=== PATIENT | female | born 1970 | race American Indian/Alaskan Native ===

== ENCOUNTER 2016-08-03 13:42 | Emergency (ER) | payer MEDICAID ==
--- NOTE | 2016-08-03 14:06 | Emergency Department Report ---
ED Chest Pain HPI - General Chief Complaint: Chest Pain Stated Complaint: CHEST PAIN Time Seen by Provider: 08/03/16 14:02 Source: patient, EMS Mode of arrival: Stretcher Limitations: No Limitations - History of Present Illness Initial Comments: The patient describes a left-sided chest pain of 1 week's duration. She states first that it was in the axillary area and then in a spot which appear to be in her left breast. She states that it is not associated with shortness of breath or fever chills. She also denies leg pain or swelling. She is concerned she it might be related to "black mold". She states that she was admitted in care of this stone one year ago for chest pain. At that time she had a stress test that was negative and she was discharged in that state. She denies any pleuritic pain. She denies any exertional pain. She has no history of coronary artery disease in first-degree relatives. MD Complaint: chest pain -: week(s) Onset: during rest Pain Location: other Pain Radiation: none Severity: mild, moderate Quality: aching Consistency: intermittent Improves With: nothing Worsens With: nothing re: denies: nausea, vomting, diaphoresis, dyspnea, sense of impending doom Other Symptoms: denies: cough, fever, syncope, rash, acid taste in mouth, leg swelling Aspirin use within the Past 7 Days: (0) No - Related Data On Oral Contraceptives: No Home Medications Medication Instructions Recorded Confirmed Last Taken Ibuprofen [Motrin] 600 mg PO Q8H PRN 04/22/13 04/22/13 04/22/13 12:00 Losartan [Cozaar] 25 mg PO QDAY 04/22/13 04/22/13 04/22/13 08:00 Previous Rx's Medication Instructions Recorded Last Taken Type Fluconazole [Diflucan] 150 mg PO QDAY #1 tablet 04/23/13 Unknown Rx Hydrocodone Bit/Acetaminophen 1 each PO Q4-6H #14 tablet 04/23/13 Unknown Rx [Lortab 5-500 Tablet] Lisinopril [Zestril TAB] 10 mg PO QDAY #30 tablet 04/23/13 Unknown Rx Sulfamethoxazole/Trimethoprim 1 each PO BID #14 tablet 04/23/13 Unknown Rx [Bactrim DS] traMADol [Ultram] 50 mg PO Q6HR PRN #14 tablet 08/03/16 Unknown Rx Allergies Allergy/AdvReac Type Severity Reaction Status Date / Time No Known Allergies Allergy Unverified 04/22/13 23:06 HAKEEM score - Hakeem Score Age > 65: (0) No Aspirin use within the Past 7 Days: (0) No 3 or more CAD Risk Factors: (0) No 2 or more Angina events in past 24 hrs: (0) No Known CAD with more than 50% Stenosis: (0) No Elevated Cardiac Markers: (0) No ST Deviation Greater than 0.5mm: (0) No HAKEEM Score: 0 ED Review of Systems ROS: Stated complaint: CHEST PAIN Other details as noted in HPI Constitutional: denies: chills, fever Eyes: denies: eye pain, eye discharge, vision change ENT: denies: ear pain, throat pain Respiratory: denies: cough, shortness of breath, wheezing Cardiovascular: chest pain. denies: palpitations Endocrine: no symptoms reported Gastrointestinal: denies: abdominal pain, nausea, diarrhea Genitourinary: denies: urgency, dysuria, discharge Musculoskeletal: denies: back pain, joint swelling, arthralgia Skin: denies: rash, lesions Neurological: denies: headache, weakness, paresthesias Psychiatric: denies: anxiety, depression Hematological/Lymphatic: denies: easy bleeding, easy bruising ED Past Medical Hx - Past Medical History Previous Medical History?: Yes Hx Hypertension: Yes - Surgical History Past Surgical History?: Yes Additional Surgical History: csection - Social History Smoking Status: Never Smoker Substance Use Type: Marijuana - Medications Home Medications: Home Medications Medication Instructions Recorded Confirmed Last Taken Type Ibuprofen [Motrin] 600 mg PO Q8H PRN 04/22/13 04/22/13 04/22/13 12:00 History Losartan [Cozaar] 25 mg PO QDAY 04/22/13 04/22/13 04/22/13 08:00 History Fluconazole [Diflucan] 150 mg PO QDAY #1 tablet 04/23/13 Unknown Rx Hydrocodone Bit/Acetaminophen 1 each PO Q4-6H #14 tablet 04/23/13 Unknown Rx [Lortab 5-500 Tablet] Lisinopril [Zestril TAB] 10 mg PO QDAY #30 tablet 04/23/13 Unknown Rx Sulfamethoxazole/Trimethoprim 1 each PO BID #14 tablet 04/23/13 Unknown Rx [Bactrim DS] traMADol [Ultram] 50 mg PO Q6HR PRN #14 tablet 08/03/16 Unknown Rx ED Physical Exam - General Limitations: No Limitations General appearance: alert, in no apparent distress - Head Head exam: Present: atraumatic, normocephalic - Eye Eye exam: Present: normal appearance - ENT ENT exam: Present: mucous membranes moist - Neck Neck exam: Present: normal inspection - Respiratory Respiratory exam: Present: normal lung sounds bilaterally. Absent: respiratory distress - Cardiovascular Cardiovascular Exam: Present: regular rate, normal rhythm. Absent: systolic murmur, diastolic murmur, rubs, gallop - GI/Abdominal GI/Abdominal exam: Present: soft, normal bowel sounds. Absent: distended, tenderness, guarding, rebound, rigid - Extremities Exam Extremities exam: Present: normal inspection - Back Exam Back exam: Present: normal inspection - Neurological Exam Neurological exam: Present: alert, oriented X3, CN II-XII intact. Absent: motor sensory deficit - Psychiatric Psychiatric exam: Present: normal affect, normal mood - Skin Skin exam: Present: warm, dry, intact, normal color. Absent: rash ED Course Vital Signs 08/03/16 08/03/16 13:44 14:47 Temperature 98.3 F Pulse Rate 63 Respiratory 14 14 Rate Blood Pressure 132/82 O2 Sat by Pulse 100 Oximetry ED Medical Decision Making - Lab Data Result diagrams: 08/03/16 14:02 08/03/16 14:02 Laboratory Results - last 24 hr 08/03/16 08/03/16 14:02 14:02 WBC 6.2 RBC 5.06 H Hgb 12.7 Hct 38.6 MCV 76 L MCH 25 L MCHC 33 RDW 16.5 H Plt Count 247 Lymph % (Auto) 40.0 H [place] % (Auto) 6.7 Eos % (Auto) 1.7 Baso % (Auto) 0.6 Lymph # 2.5 [place] # 0.4 Eos # 0.1 Baso # 0.0 Seg Neutrophils % 51.0 Seg Neutrophils # 3.2 Sodium 138 Potassium 4.1 Chloride 101.6 Carbon Dioxide 25 Anion Gap 16 BUN 11 Creatinine 0.7 Estimated GFR > 60 BUN/Creatinine Ratio 15.71 Glucose 90 Calcium 8.6 Troponin T < 0.010 - EKG Data -: EKG Interpreted by Me EKG shows normal: sinus rhythm, axis, intervals, QRS complexes, ST-T waves - EKG Data Interpretation: nonspecific ST-T wave frederic (mild) - Radiology Data interpreted by me: chest x-ray NA states they showed no acute processF Critical care attestation.: If time is entered above; I have spent that time in minutes in the direct care of this critically ill patient, excluding procedure time. ED Disposition Clinical Impression: Atypical chest pain Disposition: DISCHARGED TO HOME OR SELFCARE Is pt being admited?: No Does the pt Need Aspirin: No Condition: Stable Instructions: Chest Pain (ED) Additional Instructions: Return any acute change or problem. Follow-up with her primary care provider. Rx as needed for pain. Prescriptions: traMADol [Ultram] 50 mg PO Q6HR PRN #14 tablet PRN Reason: Pain Referrals: PRIMARY CARE, [Primary Care Provider] - 3-5 Days [facility] [Provider Group] - 3-5 Days Time of Disposition: 17:02
[2016-08-03 14:14] LABS: Basophils % (Auto) 0.6 % (0.0-1.8); Eosinophils % (Auto) 1.7 % (0.0-4.3); Hematocrit 38.6 % (30.3-42.9); Hemoglobin 12.7 gm/dl (10.1-14.3); Mean Corpuscular HGB Conc 33 % (30-34); Mean Corpuscular Volume 76 fl (79-97); Platelet Count 247 K/mm3 (140-440); Red Blood Count 5.06 M/mm3 (3.65-5.03); Red Cell Distribution Width 16.5 % (13.2-15.2); White Blood Count 6.2 K/mm3 (4.5-11.0)
[2016-08-03 14:20] LABS: Mean Corpuscular Hemoglobin 25 pg (28-32)
[2016-08-03] MEDS ORDERED: TORADOL IV ONE (14:28)
[2016-08-03 14:34] LABS: Anion Gap 16 mmol/L; BUN/Creatinine Ratio 15.71; Blood Urea Nitrogen 11 mg/dL (7-17); Calcium 8.6 mg/dL (8.4-10.2); Carbon Dioxide 25 mmol/L (22-30); Chloride 101.6 mmol/L (98-107); Glucose 90 mg/dL (65-100); Potassium 4.1 mmol/L (3.6-5.0); Sodium 138 mmol/L (137-145)
[2016-08-03 17:09] VITALS: BP 126/83
--- NOTE | 2016-08-04 08:29 | XRay Report ---
CHEST ONE VIEW INDICATION: Chest pain. COMPARISON: 04/23/2013. FINDINGS: Portable, single, frontal chest radiograph demonstrates normal cardiomediastinal silhouette. Clear lungs. Unremarkable bones. Extrinsic EKG leads and presumed extrinsic artifact overlying T1. CONCLUSION: No acute disease in the chest. Thank you for the opportunity to participate in this patient's care.
== END 2016-08-03 17:20 | disposition home or self-care (01) ==
LOC: ED 13:42
DX: R07.89 Other chest pain (principal); I10 Essential (primary) hypertension; F12.10 Cannabis abuse, uncomplicated
CPT/HCPCS: 36415; 71010; 80048; 84484; 85025; 93005; 93010; 96374; 99285; J1885

== ENCOUNTER 2019-07-01 19:02 | Emergency (ER) | payer MEDICAID, OTHER ==
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
--- NOTE | 2019-07-01 23:10 | XRay Report ---
EXAMINATION: Lumbar spine radiograph series, 3 views, 07/01/2019 CLINICAL INFORMATION: Low back pain. No history of trauma is given. COMPARISON: None. FINDINGS: There is normal alignment of the lumbar vertebral bodies. Vertebral body height and interve rtebral disc spaces are well maintained. There is very minimal multilevel bony degenerative change no luke, as evidence by small anterior osteophytes. IMPRESSION: Minimal bony degenerative change of the lumbar spine. Signer Name: Stefany Chambers MD Signed: 07/01/2019 11:06 PM Workstation Name: [id number]
[2019-07-01] MEDS ORDERED: HYDROcodone/ACETAMINOPHEN 5-325 MG TAB PO STA (23:58)
[2019-07-02] MEDS ORDERED: KETOROLAC 60 MG/2 ML INJ IM ONE (00:59)
--- NOTE | 2019-07-02 01:06 | XRay Report ---
EXAMINATION: Cervical spine radiograph series, 3 views, 07/02/2019 CLINICAL INFORMATION: Neck pain. No history of trauma. COMPARISON: None. FINDINGS: There is gross normal alignment of the cervical vertebral bodies. Vertebral body height and intervertebral disc spaces are well maintained. There is very minimal degenerative change of the mid cervical spine, as evidence by small anterior osteophytes. IMPRESSION: Minimal bony degenerative change of the cervical spine. Signer Name: Stefany Chambers MD Signed: 07/02/2019 1:02 AM Workstation Name: [employer]
[2019-07-02 02:12] VITALS: BP 178/111
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
== END 2019-07-02 02:47 | disposition home or self-care (01) ==
LOC: ED 19:02
DX: M54.5 Low back pain (principal); I10 Essential (primary) hypertension; Z98.890 Other specified postprocedural states; Z79.899 Other long term (current) drug therapy; V89.2XXA Person injured in unspecified motor-vehicle accident, traffic, initial encounter; Y93.89 Activity, other specified; Y92.410 Unspecified street and highway as the place of occurrence of the external cause; Y99.8 Other external cause status
CPT/HCPCS: 72040; 72100; 96372; 99283; J1885

== ENCOUNTER 2019-10-17 17:23 | Emergency (ER) | payer SELFPAY ==
[2019-10-17 17:30] VITALS: BP 145/95
--- NOTE | 2019-10-17 17:36 | Emergency Department Report ---
Chief Complaint: Sore Throat Stated Complaint: SORE THROAT Time Seen by Provider: 10/17/19 17:27 - HPI History of Present Illness: 49 y/o female comes in for sore throat times 1 week and body aches . Has been seen and was told she does not have strep. No fever in triage. Concern for Covid-19 - Exam Physical Exam: AxO times 3 NAD throat clear /normal Ambulatory without difficulties. MSE screening note: Focused history and physical exam performed. Due to findings the following was ordered: 49 y/o female comes in for sore throat times 1 week and body aches . Has been seen and was told she does not have strep. No fever in triage. Concern for Covid-19 Recommend Zyrtec or Claritin increase fluids ED Disposition for MSE Disposition: MED SCREENING EXAM-LEFT Is pt being admited?: No Does the pt Need Aspirin: No Condition: Stable Additional Instructions: Recommend Zyrtec or Claritin increase fluids Referrals: MAUDE NELSON MD [Staff Physician] - 3-5 Days Forms: Work/School Release Form(ED)
== END 2019-10-17 18:00 | disposition left against medical advice (07) ==
LOC: ED 17:23
DX: J02.9 Acute pharyngitis, unspecified (principal); R52 Pain, unspecified
CPT/HCPCS: 99281

== ENCOUNTER 2020-08-15 23:45 | Emergency (ER) | payer SELFPAY ==
[2020-08-15 23:57] VITALS: BP 192/112
--- NOTE | 2020-08-16 00:07 | Emergency Department Report ---
ED General Adult HPI - General Chief complaint: Pain General Stated complaint: BODYACHES/ARM/SHOULDER PAIN/CHEST DISCOMFORT PUI?: No Source: patient Mode of arrival: Ambulatory Limitations: No Limitations - History of Present Illness Initial comments: 50-year-old -Swazi female with a past medical history of high blood pressure that did not take her medication presents to the emergency room stating that she went for TB test yesterday and believe that she was injected with something. Now patient reports pain all over joints and fatigue. Patient states that the nurse injected her right arm at the antecubital area with a clear substance. She was supposed to get a TB test. Onset/Timin -: days(s) Location: upper extremity Radiation: non-radiation Severity scale (0 -10): 5 Consistency: constant Improves with: none Worsens with: none Associated Symptoms: denies: confusion, diaphoresis, fever/chills, loss of appetite, nausea/vomiting, shortness of breath, weakness Treatments Prior to Arrival: none - Related Data Home Medications Medication Instructions Recorded Confirmed Last Taken Ibuprofen [Motrin] 600 mg PO Q8H PRN 04/22/13 04/22/13 04/22/13 12:00 Losartan [Cozaar] 25 mg PO QDAY 04/22/13 04/22/13 04/22/13 08:00 Previous Rx's Medication Instructions Recorded Last Taken Type Fluconazole [Diflucan] 150 mg PO QDAY #1 tablet 04/23/13 Unknown Rx Hydrocodone Bit/Acetaminophen 1 each PO Q4-6H #14 tablet 04/23/13 Unknown Rx [Lortab 5-500 Tablet] Sulfamethoxazole/Trimethoprim 1 each PO BID #14 tablet 04/23/13 Unknown Rx [Bactrim DS] lisinopriL [Zestril TAB] 10 mg PO QDAY #30 tablet 04/23/13 Unknown Rx traMADoL [Ultram] 50 mg PO Q6HR PRN #14 tablet 08/03/16 Unknown Rx Amoxicillin [Amoxicillin TAB] 875 mg PO BID #20 tablet 06/24/18 Unknown Rx Benzonatate [Tessalon Perle] 100 mg PO Q6H PRN #20 capsule 06/24/18 Unknown Rx Ibuprofen [Motrin] 600 mg PO Q8H PRN #20 tablet 06/24/18 Unknown Rx Nystas/Diphen/Xyl Visc/Mylanta 15 ml MM Q6H PRN 5 Days ml 06/24/18 Unknown Rx [Magic Mouthwash] Ketorolac [Toradol] 10 mg PO Q6H PRN #15 tablet 07/02/19 Unknown Rx methOCARBAMOL [Robaxin TAB] 750 mg PO Q8H PRN #14 tablet 07/02/19 Unknown Rx Albuterol Mdi (or & Nicu Only) 2 puff IH QID PRN #8.5 gram 01/22/20 Unknown Rx [ProAir HFA Inhaler] Benzonatate [Tessalon Perles] 100 mg PO Q8HR PRN #12 capsule 01/22/20 Unknown Rx Ondansetron [Zofran Odt] 4 mg PO Q8HR PRN #12 tab.rapdis 01/22/20 Unknown Rx Allergies Allergy/AdvReac Type Severity Reaction Status Date / Time No Known Allergies Allergy Verified 01/22/20 11:41 ED Review of Systems ROS: Stated complaint: BODYACHES/ARM/SHOULDER PAIN/CHEST DISCOMFORT Other details as noted in HPI Comment: All other systems reviewed and negative ED Past Medical Hx - Past Medical History Hx Hypertension: Yes Additional medical history: Chronic Low Back Pain - Surgical History Additional Surgical History: csection - Social History Smoking Status: Never Smoker - Medications Home Medications: Home Medications Medication Instructions Recorded Confirmed Last Taken Type Ibuprofen [Motrin] 600 mg PO Q8H PRN 04/22/13 04/22/13 04/22/13 12:00 History Losartan [Cozaar] 25 mg PO QDAY 04/22/13 04/22/13 04/22/13 08:00 History Fluconazole [Diflucan] 150 mg PO QDAY #1 tablet 04/23/13 Unknown Rx Hydrocodone Bit/Acetaminophen 1 each PO Q4-6H #14 tablet 04/23/13 Unknown Rx [Lortab 5-500 Tablet] Sulfamethoxazole/Trimethoprim 1 each PO BID #14 tablet 04/23/13 Unknown Rx [Bactrim DS] lisinopriL [Zestril TAB] 10 mg PO QDAY #30 tablet 04/23/13 Unknown Rx traMADoL [Ultram] 50 mg PO Q6HR PRN #14 tablet 08/03/16 Unknown Rx Amoxicillin [Amoxicillin TAB] 875 mg PO BID #20 tablet 06/24/18 Unknown Rx Benzonatate [Tessalon Perle] 100 mg PO Q6H PRN #20 capsule 06/24/18 Unknown Rx Ibuprofen [Motrin] 600 mg PO Q8H PRN #20 tablet 06/24/18 Unknown Rx Nystas/Diphen/Xyl Visc/Mylanta 15 ml MM Q6H PRN 5 Days ml 06/24/18 Unknown Rx [Magic Mouthwash] Ketorolac [Toradol] 10 mg PO Q6H PRN #15 tablet 07/02/19 Unknown Rx methOCARBAMOL [Robaxin TAB] 750 mg PO Q8H PRN #14 tablet 07/02/19 Unknown Rx Albuterol Mdi (or & Nicu Only) 2 puff IH QID PRN #8.5 gram 01/22/20 Unknown Rx [ProAir HFA Inhaler] Benzonatate [Tessalon Perles] 100 mg PO Q8HR PRN #12 capsule 01/22/20 Unknown Rx Ondansetron [Zofran Odt] 4 mg PO Q8HR PRN #12 tab.rapdis 01/22/20 Unknown Rx ED Physical Exam - General Limitations: No Limitations General appearance: alert, in no apparent distress, anxious - Head Head exam: Present: atraumatic, normocephalic - Eye Eye exam: Present: normal appearance - ENT ENT exam: Present: mucous membranes moist - Neck Neck exam: Present: normal inspection, full ROM - Respiratory Respiratory exam: Absent: accessory muscle use - Extremities Exam Extremities exam: Present: full ROM - Back Exam Back exam: Present: normal inspection, full ROM - Neurological Exam Neurological exam: Present: alert, oriented X3, normal gait - Psychiatric Psychiatric exam: Present: normal affect, normal mood - Skin Skin exam: Present: warm, dry, intact, normal color. Absent: rash ED Course Vital Signs 08/15/20 23:54 Temperature 99.6 F Pulse Rate 85 Respiratory 18 Rate Blood Pressure 192/112 O2 Sat by Pulse 95 Oximetry ED Medical Decision Making - Lab Data Result diagrams: 08/16/20 00:15 08/16/20 00:15 - Medical Decision Making 50-year-old -Swazi female with a past medical history of high blood pressure that did not take her medication presents to the emergency room stating that she went for TB test yesterday and believe that she was injected with something. Now patient reports pain all over joints and fatigue. Patient states that the nurse injected her right arm at the antecubital area with a clear substance. She was supposed to get a TB test. Blood sugar 95. All labs are within normal limits. Discussed with patient she can take Tylenol or ibuprofen. Critical care attestation.: If time is entered above; I have spent that time in minutes in the direct care of this critically ill patient, excluding procedure time. ED Disposition Clinical Impression: Generalized pain Disposition: DC-01 TO HOME OR SELFCARE Is pt being admited?: No Does the pt Need Aspirin: No Condition: Stable Instructions: Musculoskeletal Pain Additional Instructions: All labs are stable there is no signs of infection. I recommend Tylenol ibuprofen for pain. Follow-up with your primary care provider. Referrals: LANDEN MURRY MD [Primary Care Provider] - 3-5 Days [facility] [Provider Group] - 3-5 Days MAUDE NELSON MD [Staff Physician] - 3-5 Days Forms: Work/School Release Form(ED)
[2020-08-16 00:39] LABS: Basophils % (Auto) 0.6 % (0.0-1.8); Eosinophils # (Auto) 0.1 K/mm3 (0.0-0.4); Eosinophils % (Auto) 1.5 % (0.0-4.3); Hematocrit 40.2 % (30.3-42.9); Hemoglobin 13.6 gm/dl (10.1-14.3); Lymphocytes # (Auto) 3.4 K/mm3 (1.2-5.4); Lymphocytes % (Auto) 38.8 % (13.4-35.0); Mean Corpuscular HGB Conc 34 % (30-34); Mean Corpuscular Volume 77 fl (79-97); Monocytes # (Auto) 0.6 K/mm3 (0.0-0.8); Monocytes % (Auto) 6.6 % (0.0-7.3); Platelet Count 278 K/mm3 (140-440); Red Blood Count 5.26 M/mm3 (3.65-5.03)
[2020-08-16 00:55] LABS: Alanine Aminotransferase 21 units/L (7-56); Albumin 4.4 g/dL (3.9-5); BUN/Creatinine Ratio 16; Blood Urea Nitrogen 13 mg/dL (7-17); Calcium 9.6 mg/dL (8.4-10.2); Hemolysis Index 6
[2020-08-16 01:45] LABS: Bacteria,Urine 4+ /HPF (Negative); Bilirubin,Urine NEG (Negative); Blood,Urine NEG (Negative); Color,Urine Yellow (Yellow); Mucus,Urine FEW /HPF; Protein,Urine <15 mg/dL mg/dL (Negative); Urobilinogen,Urine < 2.0 mg/dL (<2.0)
[2020-08-16] MEDS ORDERED: IBUPROFEN 600 MG TAB PO ONE (02:23)
== END 2020-08-16 02:26 | disposition home or self-care (01) ==
LOC: ED 23:45
DX: M25.519 Pain in unspecified shoulder (principal); M79.603 Pain in arm, unspecified; I10 Essential (primary) hypertension; Z79.899 Other long term (current) drug therapy; Z98.890 Other specified postprocedural states
CPT/HCPCS: 36415; 80053; 81001; 82962; 85025

== ENCOUNTER 2021-01-09 15:59 | Emergency (ER) | payer MEDICAID ==
[2021-01-09 16:56] VITALS: BP 156/101
--- NOTE | 2021-01-09 18:32 | Emergency Department Report ---
Chief Complaint: Skin/Abscess/Foreign Body Stated Complaint: BODY PAIN Time Seen by Provider: 01/09/21 18:28 - HPI History of Present Illness: Patient is a 50-year-old female presents emergency room with complaints of wanting to have her tattoo checked on her right hand. she states that she had a tattoo on December 27. She states it has been crusting and irritating. She denies any numbness, weakness, fever, nausea, vomiting, diarrhea, chills. Past medical history of hypertension. No allergies medications. She states that she wants a blood test to check for hepatitis, HIV, staph. On exam: There is a tattoo to the right dorsal hand that appears to be in the healing process, there is some scabbing present, there is no erythema, no edema, no increased warmth, no fluctuance, no drainage, full range of motion, neurovascularly intact Patient is presenting for concerns of an infection to her tattoo There is a small abrasion/scab present, there is no erythema, no increased warmth, no induration, no fluctuance, no edema, there is no signs of cellulitis or abscess. Advised patient that we do not do HIV or hepatitis testing in the emergency room, given information for PCP and health department Advised patient that she has no clinical signs of infection at this time Discussed with patient Please use triple antibiotic or Neosporin ointment [id number] and place it 3 times a day. Follow-up with a primary care doctor in the health department. Return to emergency room for new or worse symptoms. Medical screening examination performed and there is no threat to life or limb at this time Discuss strict return precautions - Exam Vital Signs: Vital Signs 01/09/21 16:52 Temperature 98.6 F Pulse Rate 77 Respiratory 18 Rate Blood Pressure 156/101 O2 Sat by Pulse 99 Oximetry MSE screening note: Focused history and physical exam performed. Due to findings the following was ordered: ED Disposition for MSE Clinical Impression: Encounter for medical screening examination Disposition: DC-01 TO HOME OR SELFCARE Is pt being admited?: No Does the pt Need Aspirin: No Condition: Stable Additional Instructions: Please use triple antibiotic or Neosporin ointment [id number] and place it 3 times a day. Follow-up with a primary care doctor in the health department. Return to emergency room for new or worse symptoms. Referrals: [facility] [Provider Group] - 3-5 Days [facility] [Outside] - 3-[address] [facility] [Outside] - 3-5 Days [facility] [Outside] - 3-5 Days Time of Disposition: 18:31 Print Language: ICELANDIC
== END 2021-01-09 18:40 | disposition home or self-care (01) ==
LOC: ED 15:59
DX: M79.10 Myalgia, unspecified site (principal); Z00.00 Encounter for general adult medical examination without abnormal findings
CPT/HCPCS: 99281

== ENCOUNTER 2021-02-25 17:32 | Emergency (ER) | payer MEDICAID ==
[2021-02-25 22:59] VITALS: BP 198/126
--- NOTE | 2021-02-26 00:03 | XRay Report ---
LEFT FOOT 3 VIEWS INDICATION / CLINICAL INFORMATION: possible foreign body COMPARISON: None available. FINDINGS: BONES / JOINT(S): No acute fracture or subluxation. Small bunion first metatarsal head. Mild degenera tive change greatest first metatarsophalangeal joint and midfoot. Mild/moderate calcaneal spurring. SOFT TISSUES: No radiopaque foreign body identified. ADDITIONAL FINDINGS: None. Signer Name: Santiago Syed MD Signed: 02/25/2021 11:59 PM Workstation Name: [id number]
--- NOTE | 2021-02-26 00:44 | Emergency Department Report ---
ED Extremity Problem HPI - General Chief complaint: Skin/Abscess/Foreign Body Stated complaint: LEG PAIN Source: patient Mode of arrival: Ambulatory Limitations: No Limitations - History of Present Illness Initial comments: Patient is a 50-year-old -[place] female with a history of hypertension who presents to the ED with complaint of acute onset persistent severe painful mildly swollen left plantar foot due to a small puncture wound after she stepped onto a sharp object when wearing plastic shoes about 4 days ago. Patient states that the sharp object which she cannot remember what it may have been pierced through the rubber shoes and onto her left plantar foot causing puncture wound. Patient states that the pain has been persistent and worse especially in the last 2 days such that she is unable to bear weight on the left foot because of pain. Patient states that she is up-to-date with her tetanus vaccinations. Patient denies numbness and tingling or weakness of left foot, dizziness, syncope, fall, fever, chest pain or shortness of breath, chills, nausea and vomiting or back pain. MD Complaint: extremity pain (Left plantar foot pain puncture wound), other (Puncture wound on left plantar foot with pain) -: Sudden, days(s) (4) Location: left, lower extremity (Left plantar foot puncture wound with pain) History of Same: No -: Yes arthralgia, No fever, No associated dyspnea, No associated chest pain Radiation: distal Severity scale (0 -10): 8 Quality: aching, sharp Consistency: constant Improves with: nothing Worsens with: weight bearing, walking, exertion, palpation Associated Symptoms: denies other symptoms. denies: chest pain, shortness of breath, fever, myalgias, arthralgias, rash, other - Related Data Home Medications Medication Instructions Recorded Confirmed Last Taken Ibuprofen [Motrin] 600 mg PO Q8H PRN 04/22/13 04/22/13 04/22/13 12:00 Losartan [Cozaar] 25 mg PO QDAY 04/22/13 04/22/13 04/22/13 08:00 Previous Rx's Medication Instructions Recorded Last Taken Type Fluconazole [Diflucan] 150 mg PO QDAY #1 tablet 04/23/13 Unknown Rx Hydrocodone Bit/Acetaminophen 1 each PO Q4-6H #14 tablet 04/23/13 Unknown Rx [Lortab 5-500 Tablet] Sulfamethoxazole/Trimethoprim 1 each PO BID #14 tablet 04/23/13 Unknown Rx [Bactrim DS] lisinopriL [Zestril TAB] 10 mg PO QDAY #30 tablet 04/23/13 Unknown Rx traMADoL [Ultram] 50 mg PO Q6HR PRN #14 tablet 08/03/16 Unknown Rx Amoxicillin [Amoxicillin TAB] 875 mg PO BID #20 tablet 06/24/18 Unknown Rx Benzonatate [Tessalon Perle] 100 mg PO Q6H PRN #20 capsule 06/24/18 Unknown Rx Ibuprofen [Motrin] 600 mg PO Q8H PRN #20 tablet 06/24/18 Unknown Rx Nystas/Diphen/Xyl Visc/Mylanta 15 ml MM Q6H PRN 5 Days ml 06/24/18 Unknown Rx [Magic Mouthwash] Ketorolac [Toradol] 10 mg PO Q6H PRN #15 tablet 07/02/19 Unknown Rx methOCARBAMOL [Robaxin TAB] 750 mg PO Q8H PRN #14 tablet 07/02/19 Unknown Rx Albuterol Mdi (or & Nicu Only) 2 puff IH QID PRN #8.5 gram 01/22/20 Unknown Rx [ProAir HFA Inhaler] Benzonatate [Tessalon Perles] 100 mg PO Q8HR PRN #12 capsule 01/22/20 Unknown Rx Ondansetron [Zofran Odt] 4 mg PO Q8HR PRN #12 tab.rapdis 01/22/20 Unknown Rx Ciprofloxacin HCl 500 mg PO Q12H #20 tablet 02/26/21 Unknown Rx Ibuprofen [Motrin] 800 mg PO Q8HR PRN #30 tablet 02/26/21 Unknown Rx traMADoL [Ultram] 50 mg PO Q6HR PRN #12 tablet 02/26/21 Unknown Rx Allergies Allergy/AdvReac Type Severity Reaction Status Date / Time No Known Allergies Allergy Verified 01/22/20 11:41 ED Review of Systems ROS: Stated complaint: LEG PAIN Other details as noted in HPI Constitutional: denies: chills, fever Eyes: denies: eye pain, eye discharge, vision change ENT: denies: ear pain, throat pain Respiratory: denies: cough, shortness of breath, wheezing Cardiovascular: denies: chest pain, palpitations Endocrine: no symptoms reported Gastrointestinal: denies: abdominal pain, nausea, diarrhea Genitourinary: denies: urgency, dysuria, discharge Musculoskeletal: arthralgia (Left plantar foot pain due to a small puncture wound with mild swelling). denies: back pain, joint swelling Skin: other (Small puncture wound on left plantar foot with severe pain). denies: rash, lesions Neurological: denies: headache, weakness, paresthesias Psychiatric: denies: anxiety, depression Hematological/Lymphatic: denies: easy bleeding, easy bruising ED Past Medical Hx - Past Medical History Previous Medical History?: Yes Hx Hypertension: Yes Additional medical history: Chronic Low Back Pain - Surgical History Past Surgical History?: Yes Additional Surgical History: csection - Social History Smoking Status: Never Smoker - Medications Home Medications: Home Medications Medication Instructions Recorded Confirmed Last Taken Type Ibuprofen [Motrin] 600 mg PO Q8H PRN 04/22/13 04/22/13 04/22/13 12:00 History Losartan [Cozaar] 25 mg PO QDAY 04/22/13 04/22/13 04/22/13 08:00 History Fluconazole [Diflucan] 150 mg PO QDAY #1 tablet 04/23/13 Unknown Rx Hydrocodone Bit/Acetaminophen 1 each PO Q4-6H #14 tablet 04/23/13 Unknown Rx [Lortab 5-500 Tablet] Sulfamethoxazole/Trimethoprim 1 each PO BID #14 tablet 04/23/13 Unknown Rx [Bactrim DS] lisinopriL [Zestril TAB] 10 mg PO QDAY #30 tablet 04/23/13 Unknown Rx traMADoL [Ultram] 50 mg PO Q6HR PRN #14 tablet 08/03/16 Unknown Rx Amoxicillin [Amoxicillin TAB] 875 mg PO BID #20 tablet 06/24/18 Unknown Rx Benzonatate [Tessalon Perle] 100 mg PO Q6H PRN #20 capsule 06/24/18 Unknown Rx Ibuprofen [Motrin] 600 mg PO Q8H PRN #20 tablet 06/24/18 Unknown Rx Nystas/Diphen/Xyl Visc/Mylanta 15 ml MM Q6H PRN 5 Days ml 06/24/18 Unknown Rx [Magic Mouthwash] Ketorolac [Toradol] 10 mg PO Q6H PRN #15 tablet 07/02/19 Unknown Rx methOCARBAMOL [Robaxin TAB] 750 mg PO Q8H PRN #14 tablet 07/02/19 Unknown Rx Albuterol Mdi (or & Nicu Only) 2 puff IH QID PRN #8.5 gram 01/22/20 Unknown Rx [ProAir HFA Inhaler] Benzonatate [Tessalon Perles] 100 mg PO Q8HR PRN #12 capsule 01/22/20 Unknown Rx Ondansetron [Zofran Odt] 4 mg PO Q8HR PRN #12 tab.rapdis 01/22/20 Unknown Rx Ciprofloxacin HCl 500 mg PO Q12H #20 tablet 02/26/21 Unknown Rx Ibuprofen [Motrin] 800 mg PO Q8HR PRN #30 tablet 02/26/21 Unknown Rx traMADoL [Ultram] 50 mg PO Q6HR PRN #12 tablet 02/26/21 Unknown Rx ED Physical Exam - General Limitations: No Limitations General appearance: alert, in no apparent distress, anxious - Head Head exam: Present: atraumatic, normocephalic, normal inspection - Eye Eye exam: Present: normal appearance, PERRL, EOMI Pupils: Present: normal accommodation - ENT ENT exam: Present: normal exam, normal orophraynx, mucous membranes moist, TM's normal bilaterally, normal external ear exam - Neck Neck exam: Present: normal inspection, full ROM - Respiratory Respiratory exam: Present: normal lung sounds bilaterally. Absent: respiratory distress, wheezes, rhonchi, chest wall tenderness, accessory muscle use, decreased breath sounds, prolonged expiratory - Cardiovascular Cardiovascular Exam: Present: regular rate, normal rhythm, normal heart sounds. Absent: systolic murmur, diastolic murmur, rubs, gallop - GI/Abdominal GI/Abdominal exam: Present: soft, normal bowel sounds. Absent: tenderness, guarding, rebound, hyperactive bowel sounds, hypoactive bowel sounds - Extremities Exam Extremities exam: Present: normal inspection, tenderness (Palpable severe localized left plantar foot tenderness due to 2 cm puncture wound with mild purulent discharge), normal capillary refill. Absent: pedal edema, joint swelling, calf tenderness, other - Back Exam Back exam: Present: normal inspection, full ROM. Absent: tenderness, CVA tenderness (R), CVA tenderness (L), muscle spasm, paraspinal tenderness, vertebral tenderness - Neurological Exam Neurological exam: Present: alert, oriented X3, CN II-XII intact, normal gait, reflexes normal - Psychiatric Psychiatric exam: Present: normal affect, normal mood - Skin Skin exam: Present: warm, dry, normal color, other (Open 2 cm puncture wound on left plantar foot with localized tenderness and mild purulent discharge). Absent: rash ED Course Vital Signs 02/25/21 22:56 Temperature 97.7 F Pulse Rate 93 H Respiratory 20 Rate Blood Pressure 198/126 O2 Sat by Pulse 98 Oximetry ED Medical Decision Making - Radiology Data Radiology results: report reviewed, image reviewed [facility] [address] [place] [address] XRay Report Signed Patient: HECTOR FINLEY MR#: [id number] : 1970 Acct:[id number] Age/Sex: 50 / F ADM Date: 02/25/21 Loc: ED Attending Dr: Ordering Physician: JUDITH CORDOVA MD Date of Service: 02/25/21 Procedure(s): XR foot 3+V LT Accession Number(s): [id number] cc: ED MD TASHA Fluoro Time In Minutes: LEFT FOOT 3 VIEWS INDICATION / CLINICAL INFORMATION: possible foreign body COMPARISON: None available. FINDINGS: BONES / JOINT(S): No acute fracture or subluxation. Small bunion first metatarsal head. Mild degenerative change greatest first metatarsophalangeal joint and midfoot. Mild/moderate calcaneal spurring. SOFT TISSUES: No radiopaque foreign body identified. ADDITIONAL FINDINGS: None. Signer Name: Santiago Syed MD Signed: 02/25/2021 11:59 PM Workstation Name: [id number] Transcribed By: ES Dictated By: Santiago Syed MD Electronically Authenticated By: Santiago Syed MD Signed Date/Time: 02/25/21 279 DD/ 56 TD/TT: - Medical Decision Making This is a 50-year-old -[place] female with a history of hypertension who presents to the ED with complaint of acute onset persistent severe painful mildly swollen left plantar foot due to a small puncture wound after she stepped onto a sharp object when wearing plastic shoes about 4 days ago. Patient states that the sharp object which she cannot remember what it may have been pierced through the rubber shoes and onto her left plantar foot causing puncture wound. Patient states that the pain has been persistent and worse especially in the last 2 days such that she is unable to bear weight on the left foot because of pain. Patient states that she is up-to-date with her tetanus vaccinations. In the ED, patient is alert and oriented x3 and is not in any distress but appears to be in pain. Patient is up-to-date with all her tetanus vaccinations. Patient was treated for pain in the ED and left foot x-ray showed no acute fractures or subluxations, or presence of any foreign bodies stuck in the left plantar foot soft tissues. Patient was therefore discharged home on antibiotics and pain medications and also given crutches to aid in ambulation. Patient was advised to follow-up with her primary care physician in 7 to 10 days for reevaluation or return to the ED immediately if symptoms get worse. - Differential Diagnosis Puncture wound; cellulitis; abrasion; laceration; foot fracture Critical care attestation.: If time is entered above; I have spent that time in minutes in the direct care of this critically ill patient, excluding procedure time. ED Disposition Clinical Impression: Puncture wound of left foot without foreign body Qualifiers: Encounter type: initial encounter Qualified Code(s): S91.332A - Puncture wound without foreign body, left foot, initial encounter Disposition: HOME / SELF CARE / HOMELESS Is pt being admited?: No Does the pt Need Aspirin: No Condition: Stable Instructions: Puncture Wound, [id number] Additional Instructions: The left foot x-ray showed no acute fractures or subluxations or presence of any foreign bodies within the tissues of the left foot. Therefore take medications with food, drink plenty of fluids and follow-up with your primary care physician in 7 to 10 days for reevaluation. Return to the ED immediately if symptoms get worse. Prescriptions: Ciprofloxacin HCl 500 mg PO Q12H #20 tablet Ibuprofen [Motrin] 800 mg PO Q8HR PRN #30 tablet PRN Reason: Pain , Severe (7-10) traMADoL [Ultram] 50 mg PO Q6HR PRN #12 tablet PRN Reason: Pain Referrals: [facility] [Provider Group] - 7-10 days Forms: Work/School Release Form(ED) Time of Disposition: 00:47 Print Language: LATVIAN
== END 2021-02-26 00:58 | disposition home or self-care (01) ==
LOC: ED 17:32
DX: S91.332A Puncture wound without foreign body, left foot, initial encounter (principal); W22.8XXA Striking against or struck by other objects, initial encounter; Y93.89 Activity, other specified; Y92.89 Other specified places as the place of occurrence of the external cause; Y99.8 Other external cause status
CPT/HCPCS: 99283